=== PATIENT | male | born 1990 | race Caucasian/White ===

== ENCOUNTER 2025-06-25 14:15 | Outpatient (RCR) | payer MEDICAID, OTHER, SELFPAY ==
[2025-06-19 10:34] VITALS: BMI 36.6
[2025-06-19 10:35] VITALS: BP 128/80; PULSE 60; TEMP 36.4
--- NOTE | 2025-06-19 13:53 | P.HPPSP_ITS ---
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 Patient graduated law school in 2021 and last worked 9 months ago, has a number of factors he feels is getting in the way of progress. 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 He describes feeling demoralized and delusioned by life, specifically talks about national and world events, laments the current G0 political climate in shares being increasingly disillusioned by capitalism, seeing working to make a living as lacking meaning and purpose. Describes a lot of existential angst. The feeling that life has been passing him by. Reports his depression severity at a 9-10/10 and anxiety varying from a 0 to a 10 /10. Denies any hopelessness or thoughts of giving up on life. DEnies SI, HI, AH, VH. Past Psychiatric History: No prior IPLOC, PHP, respite, detox/rehab admissions SA: denies SIB: denies Aggression or antisocial behaviors: denies Legal history: reports recent involvement with litigation toward landlord Pertinent developmental hx: History of disorganized eating behaviors, purging, possibly BED Psychiatrist: ([facility]) Therapist: Jian Sullivan LCSW PCP: Will Heller Previous trials: escitalopram History of ketamine treatment (x3 weeks) in 2023 CURRENT MEDICATIONS: Escitalopram 10 mg qd [facility] Medical History (Updated 06/22/25 @ 04:08 by Rosette Maldonado MD) Right knee pain Fatty liver Hypospadias Narrative: Fatty liver Lactose intolerance Z[place] Schlatters disease s/p R knee repair Surgeries: denies Seizures: denies Concussions/TBI: denies Ht: 5'11 Wt: 262 lbs ALL: NKDA Surgical History (Updated 06/19/25 @ 10:29 by Judy Hernadez RN) H/O right knee surgery Family History: Seizures in sister Social History: Unmarried, no children Completed [employer] studies, obtained Master degree Reports completing law school in 2021 Currently unemployed Substance History: Cannabis use Nicotine use Trauma History: denies Diagnostics Vital Signs (24Hr): BMI result Body Mass Index 36.6 Meds/Allergies Meds Home Medications ?Medication ?Instructions ?Recorded ?Confirmed ?Type escitalopram oxalate 10 mg tablet 10 mg PO DAILY 06/1906/19/25 History meloxicam 15 mg tablet 15 mg PO DAILY 06/19/25 08/0 12/13 History Allergies Allergies Allergy/AdvReac Type Severity Reaction Status Date / Time lactose Allergy GI issues Verified 06/19/25 10:30 Mental Status Exam Mental Status Exam Narrative: Alert, oriented, in no acute distress. Calm, cooperative, engaged, friendly, talkative. Restless at moments, no psychomotor agitation or neurovegetative retardation. Eye contact maintained. Mood depressed, affect brighter than expected, mood incongruent possible without notable lability. Speech normal. Thought process linear, coherent. Thought content related to stressors, transient helplessness, no hopelessness noted, denies SI, intention, urge or plan. Denies any aggressive ideation or HI. No paranoia or delusional content elicited. No evidence of psychosis. Insight and judgment - fair but adequate Assessment & Plan Assessment & Plan (1) MDD (major depressive disorder), recurrent episode, moderate: Status: Acute Code(s): F33.1 - Major depressive disorder, recurrent, moderate (2) CHAD (generalized anxiety disorder): Status: Acute Code(s): F41.1 - Generalized anxiety disorder Plan Admit to [facility] VS reviewed: afebrile, BP 128/80;?60 bpm increase escitalopram to 15 mg qd continue regular medications Routine lab work as indicated EKG, routine for baseline QTc for medication considerations as indicated UDS as indicated MassPat reviewed Continue to monitor as per protocol Patient educated on: diagnosis, medication risk/benefits and substance abuse Informed Consent: understands Reason for continued partial hosp. stay Substantial Risk for: inability to function and med/psych decompensation Certification I certify that partial hospital treatment is medically necessary due to the symptoms and problems resulting from the patient's mental illness and the failure to treat the patient at the partial hospital level of care would likely result in the patient requiring inpatient psychiatric care which could not be prevented at a less intensive level of care. Time Spent With Patient Time: Total time managing care of this patient today _60___ minutes.
--- NOTE | 2025-06-19 14:59 | PC.ADMIT ---
Patient is a 34 year old single male who was referred to [facility] by his therapist secondary to increased depression and anxiety. Patient reports he moved to this area from [facility] and was living with his parents who he states are supportive. Patient stated he moved out of his parents home a month ago. 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 Stated he has some issues with housing as a result of his occupation. Patient is currently unemployment as he stated she has been taking care of uncle who was in hospice care and had 2 weeks ago. Patient reports history of knee pain and has chronic pain flare ups. Stated when this happens he has difficulty walking and driving a car. Patient reports he has had many tests done on his knees however doctors were unable to find any issues with his knee. Patient takes Meloxicam PRN. Patient medication education provided and he is aware that it is prescribed daily. Patient is alert and oriented x4. He is calm and cooperative. He presented with depressed mood and affect. He denied SI. No HI. He was given a copy of his safety plan if needed. Patient medications were updated with patient and patient's pharmacy. He reports taking medications as prescribed. Patient reports that he uses Marijuana daily using 2.5 joints daily. Patient reports he uses it for anxiety and sleep. He reports smoking marijuana throughout the day. Patient given written and verbal education about possible long and short term side effects along with sxs of Marijuana use disorder. Patient educated about substance use groups at [facility] and if he is interested in cutting down or quitting use to contact staff for help. He is not interested at this time.
--- NOTE | 2025-06-23 15:12 | HO.PHP ---
[facility] staff member was encouraged by Abi in [facility] to speak with around the concerns that were presented by HR around him soliciting for a union. [facility] staff member met with to review his treatment plan, after reviewing his treatment plan. PHP staff member stated that she needs to address something with him that came to the teams attention. was receptive. PHP staff member expressed that they were made aware that during a break, he was making comments to individuals that presented as though he was soliciting for a union. became frustrated around this accusation and stated that he was not soliciting for a union. voiced, you do know that is a threat that could get me removed off campus. said he would like to speak to this individual because that is not what he was doing. [facility] staff member voiced that we could discuss this with the program aide group work. was in agreement. informed Abi of his concerns revolving around the accusation being made around him soliciting a union and voiced that was a threat to him. Abi informed him that we do not see you as a threat within our program and we see you apart of our family. Abi acknowledged his frustration and noted that we have to make sure he is safe while here in [facility] is aware that the [facility] staff want what is best for him in treatment and he knows that we weren't the ones expressing an issue revolving around this. then asked us if we have had pharmaceutical doctors solicit on campus grounds. PHP staff member voiced that we aren't attached to the hospital so we are unaware of what occurs on campus premises, we had to relay this information due to it being a policy. [facility] staff member voiced that she knows he is a very passionate person and that he wants to make changes but there are some things that are out of his control. PHP staff member encouraged him to focus on what he can control at this time. appeared receptive and shared the changes some of his family members have made and he wants to continue to make change as well. appeared frustrated and anxious around the situation but was able to regulate and return to the group setting. At the end of the day, around 2:20 PM was standing outside the door and stated that he would like it noted in his record that he is feeling physically distressed from this situation and it has caused him harm due to creating anxiety for him. noted that he has been ruminating on this since he was informed. [facility] staff member encouraged him to focus on what he can control because we don't want this taking away from his treatment here. stated he doesn't want this to take anything away from his treatment here either and that they knew he was in partial getting help and wasn't here to solicit. [facility] staff member actively listened to and assessed safety at the end. reported no concerns around SI, plan or intent and voiced that he is going to go home to relax and try not to think about this. [facility] staff member was receptive.
--- NOTE | 2025-06-24 13:00 | HO.PHP ---
approached the [facility] staff member to explore when he will be meeting with the higher ups to review yesterday's incident. [facility] staff member informed that she is unaware to when this will take place but does know that Abi is working on scheduling a time. explored if [facility] staff member could get things moving along more quickly, in which he said to remind them that their is going to be a lawsuit and to tell this individual that he needs to discontinue his meeting so that they can talk. [facility] staff member voiced that she will follow up. [facility] staff member went to follow up with Abi but she was not in her office. [facility] staff member then asked vin Quiroga, where Abi was and she was uncertain. [facility] staff member relayed what had stated, in which vin Quiroga, was observed tiger texting someone in regards to this.
--- NOTE | 2025-06-24 14:30 | HO.PHP ---
[facility] staff member was meeting with a pt. when she was asked by [facility] admin, Kimber, how much longer she would be due to P[place], and Abi waiting to discuss and what was said. [facility] staff member completed meeting with her pt. and then went to meet with Pipe Pantoja, and Abi. When PHP staff member entered Abi's office she saw that security was there, in which she expressed that she doesn't feel security is necessary. Judy also relayed that has been cooperative and kind since being in the program. We did share that is passionate in what he believes in. They appeared receptive and stated that security will wait outside in Judy's office and if needed will enter the meeting. [facility] staff member shared what stated. PHP staff member noted that is anxious at this time due to the situation that occurred yesterday and wanting to speak to higher ups. Abi voiced her opinions around feeling as though this program may not be the appropriate fit for him. [facility] staff member expressed that she would like to hear from his thoughts because he has only shared that this program has been helpful to him. They appeared receptive, in which [facility] staff member got to sit in on the meeting. presented as irritable and anxious. started with introducing himself and asking if he could record the meeting. Kit informed him that they do not want this meeting recorded, therefore, stated that he was going to record it in writing then. Kit agreed. began exploring how Kit was made aware of this situation and who informed him. Kit provided with that information and shared what he was told by this individual. appeared to become increasingly irritable around the claims that were being made that he had said. At this time it appeared as though there was a disagreement on who was going to talk. This then led to security entering the room, which caused to become more dysregulated and felt as though it proved his point that the hospital does see him as a threat, which is why security was there. Kit explained that we have security present for these conversation for the staffs safety. left the room, in which Judy noted he went back to group and asked if we wanted him to return. [facility] staff member suggested that Judy has him wait in group room c for her to meet with him. Abi and Kit suggested that PHP staff member explores with if this is a good fit for him or if this program is going to be triggering for him. PHP staff member was receptive and went to get who was walking outside. PHP staff member engaged in reflective listening, in which expressed feeling lied to and being unheard. also shared how he was triggered by the first officer arriving. PHP staff member informed that we want him to be able to work on what brought him to the program and explored with him if he will be able to do that if this appears to be causing him more anxiety walking into this building. Again shared how this program has helped him a lot and he has opened up so much. said this is something he can't process right now and has the to attend tomorrow. PHP staff member was receptive. Judy then came out and started disclosing that since he is being discharged from the program, we would like to provide him with additional PHP programs for him to go to. said he can't even think about this right now. PHP staff stated she will follow up with the team because he asked what that was in regards to. PHP staff member explored safety, in which he noted he is safe and stated his mother will be picking him up. PHP staff member was receptive.
--- NOTE | 2025-06-25 06:44 | HO.PHP ---
approached the [facility] staff member to explore when he will be meeting with the higher ups to review yesterday's incident. [facility] staff member informed that she is unaware to when this will take place but does know that Abi is working on scheduling a time. explored if [facility] staff member could get things moving along more quickly, in which he said to remind them that their is going to be a lawsuit and to tell this individual that he needs to discontinue his meeting so that they can talk. [facility] staff member voiced that she will follow up. [facility] staff member went to follow up with Abi but she was not in her office. [facility] staff member then asked vin Quiroga, where Abi was and she was uncertain. [facility] staff member relayed what had stated, in which vin Quiroga, was observed tiger texting someone in regards to this.
--- NOTE | 2025-06-25 15:05 | HO.PHP ---
[facility] staff member was encouraged by the team to reach out to in regards to him being discharged from the program and to provide him with resources to additional places. PHP staff member contacted to follow up in regards to how he is doing today based off of the event that had occurred yesterday. said he isn't doing to well and he was at a today. [facility] staff member empathized with . PHP staff member informed that she was able to observe how the incident had affected him yesterday and stated that the team had voiced that at this time we believe it would be best for him to seek treatment elsewhere because it appears that due to this situation, this environment is going to be too triggering to him. stated he hasn't really been able to process it still at this time. PHP staff member assessed safety, in which he reported no safety concerns and noted I am not a harm to myself or others. I am not experiencing any SI, plan or intent. He also disclosed that he is surrounded by family right now. PHP staff member was receptive. then made a comment that he will be reaching out tomorrow to make the team aware know if he is going to [facility]. PHP staff member expressed that the team aat this time decidided that he will be discharged because we don't feel our program is the best fit for him at this time based off of the situation. PHP staff member voiced that she could provide him with the resources for other additional programs. appeared receptive stated that he will come in tomorrow to get those resources. PHP staff member disclosed that she could mail the information to him. then asked if he is not allowed on campus. PHP staff member voiced that she is uncertain and her co worker just went to get Abi. Abi then came into the room, in which appeared dysregulated and irritable. was frustrated that the team made this decision and asked who that was. Abi informed him that it was with who he met with yesterday. apologized for getting upset and stated that he enjoyed this program and stated that the staff have been nothing but supportive and have been fantastic. recognized that he was directing his anger in the wrong place but continued to voice his lack of trust within the facility because of this situation. then voiced that he would like in writing that we will not be sending the police to his home tomorrow because he didn't show from the program. Abi disclosed that he is discharged from our program and that we would not be doing that. expressed that he doesn't trust that and would like Kit to email him a signed off letter stating that we will not be sending the police to his home. Abi said that she could make Kit aware. continue to press the conversation for answers that we weren't able to provide. then thanked the team again for their support and said that he really did enjoy this program.
--- NOTE | 2025-06-25 15:21 | HO.PHP ---
PHP staff member was encouraged by Abi due to her stating that Tari were recommending that we place on alert. PHP staff member sat with Abi to place on alert, in which she spoke to hema regarding this.
== END 2025-06-25 23:59 | disposition home or self-care (01) ==
LOC: HO.PHPA 14:15
PROVIDERS: Visit Provider Psychiatry & Neurology Psychiatry
DX: F33.1 Major depressive disorder, recurrent, moderate (principal); F41.1 Generalized anxiety disorder; Z79.899 Other long term (current) drug therapy
CPT/HCPCS: 90791; 90853